=== PATIENT | female | born 1975 | race Caucasian/White ===

== ENCOUNTER → 2019-01-21 | Outpatient (CLI) | payer BC ==
--- NOTE | 2019-01-21 10:42 | RADIOLOGY IMAGING REPORT ---
FACILITY: [facility] PATIENT NAME: Rachel Tinsley : 1975 MR: [id number] V: [id number] EXAM DATE: ORDERING PHYSICIAN: JESSICA CHILDERS TECHNOLOGIST: Location: [facility] [place] Patient: Rachel Tinsley : 1975 Visit/Account:[id number] Date of Sevice: 01/21/2019 CHEST PA LAT History: Cough x1 month FINDINGS: Comparison studies: None. Tubes and Lines: None. Lungs and pleura: Well aerated. No evidence of focal consolidation or pleural effusions. Mediastinum: normal. Cardiac silhouette: normal . Osseous structures: Unremarkable for age . IMPRESSION: Normal chest Report Dictated By: Darwin Pederson MD at 01/21/2019 10:36 AM Report E-Signed By: Darwin Pederson MD at 01/21/2019 10:37 AM WSN:[email or web address]
== END ==
LOC: RAD 10:08
PROVIDERS: ATTEND Nurse Practitioner Family
DX: R05 Cough (principal); R09.02 Hypoxemia
CPT/HCPCS: 71046

== ENCOUNTER → 2019-03-13 | Outpatient (CLI) | payer BC ==
--- NOTE | 2019-03-17 11:44 | RT HOLTER TEST ---
FACILITY: [facility] PATIENT NAME: YUNIER MIKE : [id number] MR: [id number] V: [id number] EXAM DATE: ORDERING PHYSICIAN: GEORGIE VIZCAINO TECHNOLOGIST: AMINTA Celis-up date: 2019-03-13 10:38:00 Duration: 24:00:00 Test Indications: R00.2 Medications: NONE ON DIARY [id number] QRS complexes 1722 Ventricular ectopics which represent 1 % of total QRS comp. 7 Supraventricular ectopics which represent <1 % of total QRS comp. * Paced QRS complexes which represent % of total QRS comp. VENTRICULAR ECTOPY 1722 Isolated 104 Bigeminal Cycles 0 Couplets 0 Runs 0 Beats in Runs * Beats LONGEST at * BPM at :: -- * Beats FASTEST at * BPM at :: -- SUPRAVENTRICULAR ECTOPY 7 Isolated 0 Couplets 0 Runs 0 Beats in Runs * Beats LONGEST at * BPM at :: -- * Beats FASTEST at * BPM at :: -- HEART RATES 41 MIN at 00:43:25 2019-03-14 75 AVG 130 MAX at 07:38:10 2019-03-14 LONGEST RR 1.576 secs at 00:39:10 2019-03-14 S-T LEVELS Channel 1 -12.800 mm MIN at 10:38:00 2019-03-13 -12.800 mm MAX at 10:38:00 2019-03-13 Channel 2 -12.800 mm MIN at 10:38:00 2019-03-13 -12.800 mm MAX at 10:38:00 2019-03-13 Channel 3 -12.800 mm MIN at 10:38:00 2019-03-13 -12.800 mm MAX at 10:38:00 2019-03-13 The patient was in a ventricular ectopy (VE) bigeminy and trigeminy during the symptom triggered even ts. The patient was predominantly in a sinus rhythm during the test with occasional VE and rare supraventricular ectopy. Most of the VE events w ere asymptomatic. Confirmed by SHANTELL BLACK ([id number]) on 03/17/2019 11:43:43 AM Referred By: Overread By: SHANTELL BLACK
== END ==
LOC: RESP 10:23
PROVIDERS: ATTEND Physician Assistant
DX: R00.2 Palpitations (principal)
CPT/HCPCS: 93225